=== PATIENT | male | born 1950 | race Caucasian/White ===

== ENCOUNTER 2019-05-05 17:16 | Emergency (ER) | payer MEDICARE ==
[~2019-05-05] VITALS: Ht 175.3 cm; Wt 84.5 kg
[~2019-05-05 17:16] MED LIST: COSAMIN DS1 CA1 PO; HYDROCHLOROT12.5 MG PO; LORTAB 5-325 MG1 TAB PO; LORTAB 7.5 OR; SAW PALMETTO450 MG PO; SILVADENE1 % EX; ZOFRAN ODT8 MG SL
[2019-05-05] MEDS ORDERED: HYDROCHLOROT25 MG PO (17:28)
[2019-05-05] MEDS ORDERED: LISINOPRIL10 MG PO (17:28)
[2019-05-05 17:54] LABS: URINE BILIRUBIN - DIPSTICK NEGATIVE (NEGATIVE); URINE BLOOD DIPSTICK NEGATIVE (NEGATIVE); URINE COLOR YELLOW; URINE GLUCOSE - DIPSTICK NEGATIVE (NEGATIVE); URINE KETONE NEGATIVE (NEGATIVE); URINE LEUK ESTERASE NEGATIVE (NEGATIVE); URINE NITRITE - DIPSTICK NEGATIVE (Negative); URINE PH 6.5 (4.5-8.0); URINE PROTEIN - DIPSTICK NEGATIVE (NEG-TRACE); URINE UROBILINOGEN - DIPSTICK 0.2 E.U./dL (0.2)
[2019-05-05] MEDS ORDERED: BACTRIM DS1 TAB PO (18:24)
[2019-05-05] MEDS ORDERED: TAMSULOSIN0.4 MG PO (18:24)
[2019-05-05 18:50] VITALS: BP 135/79
== END 2019-05-05 18:50 | disposition home or self-care (01) ==
LOC: ED 17:16
PROVIDERS: Family Medicine
DX: N40.1 Benign prostatic hyperplasia with lower urinary tract symptoms (principal); R39.11 Hesitancy of micturition; N41.0 Acute prostatitis; I10 Essential (primary) hypertension